=== PATIENT | female | born 1970 | race Caucasian/White ===

== ENCOUNTER → 2016-12-04 | Outpatient (REF) | payer BC ==
[2016-12-04 16:56] LABS: ALBUMIN/GLOBULIN RATIO 1.25 (1.00-1.93); ALKALINE PHOSPHATASE 86 U/L (45-117); ALT/SGPT 19 U/L (12-78); ANION GAP 7 MEQ/L (8-16); AST/SGOT 15 U/L (15-37); BILIRUBIN,TOTAL 0.4 MG/DL (0.2-1.0); BLOOD UREA NITROGEN 10 MG/DL (7-18); CALCIUM LEVEL 8.3 MG/DL (8.5-10.1); CARBON DIOXIDE LEVEL 28 MEQ/L (21-32); CHLORIDE LEVEL 107 MEQ/L (98-107); CREATININE FOR GFR 0.84 MG/DL (0.55-1.02); GLOMERULAR FILTRATION RATE > 60.0 (>58); GLUCOSE, FASTING 82 MG/DL (70-105); POTASSIUM SERUM 3.9 MEQ/L (3.5-5.1); SODIUM LEVEL 142 MEQ/L (136-145); TOTAL PROTEIN 7.2 GM/DL (6.4-8.2)
[2016-12-04 18:22] LABS: BASO % 0.8 % (0.0-1.0); EOS # 0.5 K/mm3 (0.0-0.50); EOS % 6.8 % (0.0-3.0); LARGE UNSTAINED CELL # 0.1 K/mm3 (0.0-0.4); LYMPH # 2.4 K/mm3 (1.5-4.5); LYMPH % 34.7 % (24.0-44.0); MEAN CORPUSCULAR HEMOGLOBIN 28.6 pg (27.0-33.0); MEAN CORPUSCULAR VOLUME 86.8 fl (80.0-96.0); MONO # 0.3 K/mm3 (0.0-0.8); MONO % 4.9 % (0.0-5.0); NEUTROPHILS # 3.5 K/mm3 (1.8-7.7); NEUTROPHILS % 51.8 % (36.0-66.0); PLATELET COUNT, AUTOMATED 267 k/mm3 (150-450); RED CELL DISTRIBUTION WIDTH 14.1 % (11.5-14.5); WHITE BLOOD COUNT 6.8 K/mm3 (4.0-10.0)
[2016-12-05 10:22] LABS: VITAMIN B12 LEVEL 295 PG/ML (247-911)
[2016-12-05 10:23] LABS: FOLATE 15.7 NG/ML (>5.4)
== END ==
LOC: M SFHCPLAZ 14:46
PROVIDERS: ATTEND Nurse Practitioner Family
DX: D64.9 Anemia, unspecified (principal); E55.9 Vitamin D deficiency, unspecified; F41.8 Other specified anxiety disorders

== ENCOUNTER → 2020-08-17 | Outpatient (REF) | payer BC ==
[2020-08-17 11:42] LABS: BASO # 0.1 10^3/uL (0.0-0.2); BASO % 0.9 % (0.0-1.0); EOS # 0.6 10^3/uL (0.0-0.5); EOS % 8.8 % (0.0-3.0); HEMATOCRIT 38.2 % (36.0-47.0); HEMOGLOBIN 12.3 g/dl (12.0-15.5); LYMPH # 2.6 10^3/uL (1.5-5.0); LYMPH % 40.7 % (24.0-44.0); MEAN CORPUSCULAR HEMOGLOBIN 28.6 pg (27.0-33.0); MEAN CORPUSCULAR HGB CONC 32.2 g/dl (32.0-36.5); MEAN CORPUSCULAR VOLUME 88.8 fl (80.0-96.0); MONO # 0.5 10^3/uL (0.0-0.8); MONO % 7.2 % (0.0-5.0); NEUTROPHILS # 2.7 10^3/uL (1.5-8.5); NEUTROPHILS % 42.2 % (36.0-66.0); PLATELET COUNT, AUTOMATED 222 10^3/uL (150-450); WHITE BLOOD COUNT 6.4 10^3/uL (4.0-10.0)
[2020-08-17 12:02] LABS: ALT/SGPT 18 U/L (12-78); BILIRUBIN,TOTAL 0.3 MG/DL (0.2-1.0); BLOOD UREA NITROGEN 8 MG/DL (7-18); CALCIUM LEVEL 8.7 MG/DL (8.5-10.1); CARBON DIOXIDE LEVEL 26 MEQ/L (21-32); CHLORIDE LEVEL 109 MEQ/L (98-107); CHOLESTEROL LEVEL 165 MG/DL (<200); CREATININE FOR GFR 0.96 MG/DL (0.55-1.30); FREE T4 0.76 NG/DL (0.76-1.46); GLOMERULAR FILTRATION RATE > 60.0 (>58); GLUCOSE, FASTING 93 MG/DL (70-100); HDL CHOLESTEROL 55 MG/DL (>40); LDL CHOLESTEROL 98 MG/DL (<100); NON-HDL-C 110 MG/DL; POTASSIUM SERUM 4.4 MEQ/L (3.5-5.1); SODIUM LEVEL 142 MEQ/L (136-145); TOTAL 25(OH) VITAMIN D 14.1 NG/ML (30.0-100.0); TOTAL PROTEIN 7.4 GM/DL (6.4-8.2); TRIGLYCERIDES LEVEL 59 MG/DL (<150)
== END ==
LOC: M SFHCCLAY 08:40
PROVIDERS: ATTEND Nurse Practitioner Family
DX: E55.9 Vitamin D deficiency, unspecified (principal); F41.8 Other specified anxiety disorders; D64.9 Anemia, unspecified; Z13.220 Encounter for screening for lipoid disorders

== ENCOUNTER → 2020-10-27 | Outpatient (CLI) | payer BC ==
[~2020-10-27] MED LIST: SERT-141 PO; THERTAB52 PO; VITA50005 PO
== END ==
LOC: M LABSMTC 10:40
PROVIDERS: ATTEND Anesthesiology
DX: Z01.812 Encounter for preprocedural laboratory examination (principal); Z20.822 Contact with and (suspected) exposure to COVID-19

== ENCOUNTER 2020-11-01 11:43 | Day surgery (SDC) | payer BC ==
[~2020-11-01] VITALS: Ht 165.1 cm; Wt 73.0 kg
[~2020-11-01 11:43] MED LIST changes: +NS 1,000 ML IV ONE
--- OUTSIDE RECORDS SUMMARY | 2020-11-01 11:47 | CCD ---
Author Author [facility] ems Organization [facility] ems Address Unknown Phone Unavailable Care Team Providers Care Product Lister Name Role Phone Nae Coulter Unavailable PROBLEMS Type Condition ICD9-CM Code [id number] Code Onset Dates Condition S tatus SNOMED Code Notes Problem Generalized anxiety disorder F41.1 Active 218 09439 Problem Major depressive disorder, recurrent episode, in partial remission F33.41 Active 04998982 Problem Vitamin D deficiency E55.9 Active 12469781 Problem Anxiety F41.9 Active 08792754 Problem Genital herpes A60.00 Active 02329564 Problem Pharyngoesophageal dysphagia R13.14 Active 407 67915 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 20071404 Problem Vitamin D deficiency, unspecified E55.9 Active 37600805 Problem Depression with anxiety F41.8 Active 00894292 6 Problem Severe episode of recurrent major depressive disorder, without psychotic features F33.2 Active 55359958 ALLERGIES No Known Allergies ENCOUNTERS from 1972 to 2020-09-05 Encounter Location Date Provider Diagnosis [address] [address] Aug Nae Nickconrado Pharyngoesophageal dysphagia R13.14 ; Vi tamin D deficiency E55.9 ; Depression with anxiety F41.8 ; Anemia, unspecified type D64.9 ; Screening for lipoid disorders Z13.220 and Encounter for immunization Z23 IMMUNIZATIONS Vaccine Route Administration Date Status Influenza (18 yrs & older) Flublok IM Intramuscular Jul 31, 2020 Administered TDAP 0.5mL (Boostrix) IM Intramuscular Nov 05, 2010 Administe red Influenza (6mo & up) Fluzone Unknown December 04, 2016 Oth ers Influenza (6mo & up) Fluzone IM Intramuscular Jul 16, 2012 Ad ministered Influenza (6mo & up) Fluzone IM Intramuscular Sep 03, 2011 Ad ministered Influenza (6mo & up) Fluzone IM Intramuscular Nov 05, 2010 Ad ministered SOCIAL HISTORY Tobacco Use: Social History Observation Description Date Details (start date - stop date) Never Smoker Sex Assigned At : Social History Observation Description Sex Assigned At Unknown Audit Question Answer Notes Total Score: 2 Interpretation: Alcohol Education Sexual Hx: Question Answer Notes Had sex in the last 12 months (vaginal, oral, or anal)? Yes LMP: 07/14/2018 Have you ever had an STD? Yes with Men only Use protection? No Drug and Alcohol Question Answer Notes Total Score: 0 Interpretation: No problems reported Alcohol Screening: Question Answer Notes Did you have a drink containing alcohol in the past year? Ye s Points 3 Interpretation Positive How often did you have six or more drinks on one occas ion in the past year? Never (0 points) How many drinks did you have on a typica l day when you were drinking in the past year? 3 or 4 (1 point) How often did you have a drink containing alcohol in t he past year? Two to four times a month (2 points) BMI Care Goal Follow-Up Question Answer Notes Above Normal BMI Follow-Up Lifestyle education regarding t Tobacco Use: Question Answer Notes Are you a: never smoker 08/29/2020 REASON FOR REFERRAL No Information VITAL SIGNS Weight 176 lbs Aug, Height 65 in Aug, BMI 29.28 kg/m2 Aug, Heart Rate 79 /min Aug, Respiratory Rate 18 /min Aug, Temperature 98 degrees Fahrenheit Aug, Oximetry 98RA Aug, Blood pressure systolic 112 mm Hg Aug, Blood pressure diastolic 70 mm Hg Aug, MEDICATIONS Medication SIG (Take, Route, Frequency, Duration) Notes Start Da te End Date Status Sertraline HCl 50 MG 1 tablet Orally Once a day for 90 Active Ibuprofen 200 MG 1 tablet as needed Orally every 6 hrs Active Clonazepam 0.5 MG 1 tablet at bedtime Orally PRN MDD 2 for 5 days Active Ergocalciferol 1.25 MG (73185 UT) 1 capsule Orally weekly for 90 day(s) Aug, Active Iron 325 (65 Fe) MG 1 tablet Orally Once a day for 30 day(s) Not-Taking PROCEDURES No Information RESULTS No Results REASON FOR VISIT 4 week follow up MEDICAL (GENERAL) HISTORY Type Description Date Medical History anxiety Medical History depression Medical History Erythropoietic Protoporphyria Surgical History 2009 Surgical History lap christiano-[place] 03/19 Hospitalization History childbirth Hospitalization History surgery Goals Section No Information Health Concerns No Information MEDICAL EQUIPMENT No Information MENTAL STATUS No Information FUNCTIONAL STATUS No Information ASSESSMENTS Encounter Date Diagnosis Assessment Notes Treatment Notes Treatm ent Clinical Notes Aug, Pharyngoesophageal dysphagia (ICD-10 - R13.14) Aug, Vitamin D deficiency (ICD-10 - E55.9) Aug, Depression with anxiety (ICD-10 - F41.8) Aug, Anemia, unspecified type (ICD-10 - D64.9) Aug, Screening for lipoid disorders (ICD-10 - Z13.220 ) Aug, Encounter for immunization (ICD-10 - Z23) Patient Educated with: FLU Vaccine, Inactivated [id number] (FLU Vaccine, Inactivated [id number]) PLAN OF TREATMENT Medication Medication Name Sig Start Date Stop Date Sertraline HCl 50 MG 1 tablet Orally Once a day for 90 Ergocalciferol 1.25 MG (06439 UT) 1 capsule Orally weekly fo r 90 day(s) Aug, Clonazepam 0.5 MG 1 tablet at bedtime Orally PRN MDD 2 for 5 day s Treatment Notes Assessment Notes Clinical Notes Encounter for immunization Patient Educated with: FLU Vaccine, Inactivated [id number] (FLU Vaccine, Inactivated [id number]) Next Appt Details 3 Months Reason: Provider Name:Nae Coulter, 11-30 08:30:00 AM, [facility] [place], [address], Insurance Providers Payer Name Payer Address Payer Phone Insured Name Patient Relati onship to Insured Coverage Start Date Coverage End Date [place] P[place] [phone] [facility] [employer] [place] [facility] [place] [id number] DIAZ MURPHY
--- OUTSIDE RECORDS SUMMARY | 2020-11-01 11:47 | CCD ---
Author Author [facility] em[facility] Organization [facility] Address Unknown Phone Unavailable Care Team Providers Care Lacrosse Player Name Role Phone Nickconrado Nae Unavailable PROBLEMS Type Condition ICD9-CM Code [id number] Code Onset Dates Condition S tatus SNOMED Code Notes Problem Generalized anxiety disorder F41.1 Active 218 92054 Problem Major depressive disorder, recurrent episode, in partial remission F33.41 Active 68233342 Problem Vitamin D deficiency E55.9 Active 45370930 Problem Anxiety F41.9 Active 16690611 Problem Genital herpes A60.00 Active 04804624 Problem Pharyngoesophageal dysphagia R13.14 Active 407 06352 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 83926902 Problem Vitamin D deficiency, unspecified E55.9 Active 98109009 Problem Depression with anxiety F41.8 Active 47924117 6 Problem Severe episode of recurrent major depressive disorder, without psychotic features F33.2 Active 99912135 ALLERGIES No Known Allergies ENCOUNTERS from 1972 to 2020-09-14 Encounter Location Date Provider Diagnosis [address] [address] Sep Nae Coulter IMMUNIZATIONS Vaccine Route Administration Date Status Influenza [...] REASON FOR REFERRAL No Information VITAL SIGNS No information MEDICATIONS Medication SIG (Take, Route, Frequency, Duration) Notes Start Da te End Date Status Sertraline HCl 50 MG 1 tablet Orally Once a day for 90 Active Ibuprofen 200 MG 1 tablet as needed Orally every 6 hrs Active Clonazepam 0.5 MG 1 tablet at bedtime Orally PRN MDD 2 for 5 days Active Ergocalciferol 1.25 MG (87232 UT) 1 capsule Orally weekly for 90 day(s) Aug, Active Iron 325 (65 Fe) MG 1 tablet Orally Once a day for 30 day(s) Not-Taking PROCEDURES No Information RESULTS No Results REASON FOR VISIT msg/call back MEDICAL (GENERAL) HISTORY Type Description Date Medical History anxiety Medical History depression Medical History Erythropoietic Protoporphyria Surgical History 2009 Surgical History lap christiano-[place] 03/19 Hospitalization History childbirth Hospitalization History surgery Goals Section No Information Health Concerns No Information MEDICAL EQUIPMENT No Information MENTAL STATUS No Information FUNCTIONAL STATUS No Information ASSESSMENTS No Information PLAN OF TREATMENT Medication Medication Name Sig Start Date Stop Date Sertraline HCl 50 MG 1 tablet Orally Once a day for 90 Ergocalciferol 1.25 MG (18622 UT) 1 capsule Orally weekly fo r 90 day(s) Aug, Clonazepam 0.5 MG 1 tablet at bedtime Orally PRN MDD 2 for 5 day s Next Appt Details Provider Name:Nae Romeroconrado, 11-30 08:30:00 AM, [address] [place], [address], Insurance Providers Payer Name Payer Address Payer Phone Insured Name Patient Relati onship to Insured Coverage Start Date Coverage End Date [place] [facility] [place] [facility] [phone] [facility] [place] [address] DIAZ MURPHY
--- OUTSIDE RECORDS SUMMARY | 2020-11-01 11:47 | CCD | Continuity of Care Document ---
Author Author Susan GREEN M.D Organization Unknown Address [address] [place] [address] Phone [phone] Care Team Providers Care Lining Setter Name Role Phone Nae Coulter [facility] [phone] Problems Active Problems Provider Date Dysphagia Mitul Green M.D. Onset: 10/24/19 21 Social History Type Date Description Comments Sex Unknown ETOH Use Occasionally Tobacco Use Start: Unknown Patient has never smoked Allergies, Adverse Reactions, Alerts Description No Known Drug Allergies Medications Active Medications SIG Qnty Indications Ordering Provide r Date Omeprazole 40mg Capsules DR 1 cap by mouth every morning 90caps Mitul Green M.D. 021 Sertraline HCL 50mg Tablets Nae Coulter FNP Vitamin D (Ergocalciferol) 1.25mg (60540 Ut) Capsules Take One Capsule By Mouth Once A Week Unk nown Multiple Vitamin Tablets Unknown Immunizations Description No Information Available Vital Signs Date Vital Result Comment 10/24/2020 2:27pm Height 65 inches 5'5" Weight 161.00 lb BP Systolic 122 mmHg BP Diastolic 88 mmHg Heart Rate 75 /min BMI (Body Mass Index) 26.8 kg/m2 Weight 73.030 kg Body Temperature 97.4 F Results Description No Information Available Procedures Description No Information Available Medical Devices Description No Information Available Encounters Description No Information Available Assessments Date Code Description Provider 10/24/2020 R13.10 Dysphagia, unspecified Mitul Green M.D. Plan of Treatment Future Appointment(s):* 11/01/2020 2:00 pm - Mitul Green M.D. at Main Office 10/24/2020 - Mitul Green M.D.* R13.10 Dysphagia, unspecified* Comments: * 50 yo wf who presents for a h/o dysphagia for 1 yr. Barium swallow was negative. No c/o abdominal pain, weight loss, change in bowel habits, or rectal bleeding. No family h/o colon cancer. No h/o chest pain, or sob. Plan:1. Egd + Balloon Dilatation.2. Informed consent. Functional Status Description No Information Available Mental Status Description No Information Available Referrals Description No Information Available
--- OUTSIDE RECORDS SUMMARY | 2020-11-01 11:47 | CCD ---
Author Author [facility]st ems Organization [facility] ems Address Unknown Phone Unavailable Care Team Providers Care Cancer Spec Name Role Phone Nae Coulter Unavailable PROBLEMS Type Condition ICD9-CM Code [id number] Code Onset Dates Condition S tatus SNOMED Code Notes Problem Generalized anxiety disorder F41.1 Active 218 46177 Problem Major depressive disorder, recurrent episode, in partial remission F33.41 Active 46384553 Problem Vitamin D deficiency E55.9 Active 40960272 Problem Anxiety F41.9 Active 59967805 Problem Genital herpes A60.00 Active 12121827 Problem Pharyngoesophageal dysphagia R13.14 Active 407 40641 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 No Alcohol Screening: Question Answer Notes Did you [...] Answer Notes Are you a: never smoker REASON FOR REFERRAL No Information VITAL SIGNS Weight 173 lbs Jul, Height 65 in Jul, BMI 28.79 kg/m2 Jul, Heart Rate 79 /min Jul, Respiratory Rate 20 /min Jul, Temperature 98.3 degrees Fahrenheit Jul, Oximetry 99 Jul, Blood pressure systolic 128 mm Hg Jul, Blood pressure diastolic 82 mm Hg Jul, MEDICATIONS Medication SIG (Take, Route, Frequency, Duration) Start Date En d Date Status Sertraline HCl 50 MG 1 tablet Orally Once a day for 90 Active Iron 325 (65 Fe) MG 1 tablet Orally Once a day for 30 day(s) Active Clonazepam 0.5 MG 1 tablet at bedtime Orally PRN MDD 2 for 5 days Active Ibuprofen 200 MG 1 tablet as needed Orally every 6 hrs Active PROCEDURES Procedure Date Ordered Result Body Site Immunization: Flublok Quadrivalent (18 years & older) 0.5mL IM (Influenza) 2020-07-31 N/A RESULTS No Results REASON FOR VISIT med check MEDICAL (GENERAL) HISTORY Type Description Date Medical History anxiety Medical History depression Medical History Erythropoietic Protoporphyria Surgical History 2009 Surgical History lap christiano-[place] 03/19 Hospitalization History childbirth Hospitalization History surgery Goals Section No Information Health Concerns No Information MEDICAL EQUIPMENT No Information MENTAL STATUS No Information FUNCTIONAL STATUS No Information ASSESSMENTS Encounter Date Diagnosis Notes Jul, Anemia, unspecified type (ICD-10 - D64.9 ) Jul, Depression with anxiety (ICD-10 - F41.8) Jul, Encounter for immunization (ICD-10 - Z23 ) Jul, Screening for lipoid disorders (ICD-10 - Z13.220) Jul, Vitamin D deficiency (ICD-10 - E55.9) Jul, Pharyngoesophageal dysphagia (ICD-10 - R 13.14) PLAN OF TREATMENT Medication Medication Name Sig Start Date Stop Date Sertraline HCl 50 MG 1 tablet Orally Once a day for 90 Clonazepam 0.5 MG 1 tablet at bedtime Orally PRN MDD 2 for 5 day s Treatment Notes Assessment Notes Clinical Notes Encounter for immunization Patient Educated with: FLU Vaccine, Inactivated [id number] (FLU Vaccine, Inactivated [id number]) Treatment Notes Test Name Order Date [facility] Esophagram (Barium Swallow) 2020-08-07 Future Test Test Name Order Date VITAMIN D 25-HYDROXY [id number] Comprehensive Metabolic Profile (CMP) [id number] LIPID PANEL (CARDIAC RISK) [id number] CBC with Differential [id number] FREE T4 & TSH PANEL [id number] Next Appt Details 4 Weeks Reason: Provider Name:Nae Coulter, 2019-10 08:30:00 AM, [address] [place], [address], Insurance Providers Payer Name Payer Address Payer Phone Insured Name Patient Relati onship to Insured Coverage Start Date Coverage End Date [employer] PPO [phone] [facility] [place] [address] DIAZ MURPHY
--- OUTSIDE RECORDS SUMMARY | 2020-11-01 11:47 | CCD | Continuity of Care Document ---
Author Author Susan GREEN M.D Organization Unknown Address [address] [place] [address] Phone [phone] Care Team Providers Care Manager Occupational Name Role Phone Nae Coulter [facility] [employer] [phone] Problems Active Problems Provider Date Dysphagia Mitul [...] Nae Coulter FNP Vitamin D (Ergocalciferol) 1.25mg (64515 Ut) Capsules Take One Capsule By Mouth [...] Medical Devices Description No Information Available Encounters Type Date Location Provider Dx Diagnosis Office Visit 10/24/2020 2:00p Main Office Mitul Green M.D. R 13.10 Dysphagia, unspecified Assessments Date Code Description Provider 10/24/2020 R13.10 Dysphagia, unspecified Mitul S. Jalyn,M.D. Plan of Treatment Future Appointment(s):* 10/30/2020 7:45 am - Leroy at Main Office * 11/01/2020 2:00 pm - Mitul Green M.D. [...]
--- OUTSIDE RECORDS SUMMARY | 2020-11-01 11:47 | CCD ---
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 Name Role Phone Noemi Gunderson MD Unavailable Unavailable Noemi Gunderson MD Unavailable Unavailable Noemi Gunderson MD Unavailable Unavailable Noemi uGnderson MD Unavailable Unavailable Noemi Gunderson MD Unavailable Unavailable Noemi Gunderson MD Unavailable Unavailable Noemi Gunderson MD Unavailable Unavailable Noemi Gunderson MD Unavailable Unavailable Noemi Gunderson MD Unavailable Unavailable Noemi Gunderson MD Unavailable Unavailable Noemi Gunderson MD Unavailable Unavailable Noemi Gunderson MD Unavailable Unavailable Noemi Gunderson MD Unavailable Unavailable Noemi Gunderson MD Unavailable Unavailable Noemi Gunderson MD Unavailable Unavailable Noemi Gunderson MD Unavailable Unavailable Noemi Gunderson MD Unavailable Unavailable Noemi Gunderson MD Unavailable Unavailable Noemi Gunderson MD Unavailable Unavailable Noemi Gunderson MD Unavailable Unavailable Noemi Gunderson MD Unavailable Unavailable Noemi Gunderson MD Unavailable Unavailable Noemi Gunderson MD Unavailable Unavailable Noemi Gunderson MD Unavailable Unavailable Noemi Gunderson MD Unavailable Unavailable Noemi Gunderson MD Unavailable Unavailable Noemi Gunderson MD Unavailable Unavailable Noemi Gunderson MD Unavailable Unavailable Noemi Gunderson MD Unavailable Unavailable Noemi Gunderson MD Unavailable Unavailable Noemi Gunderson MD Unavailable Unavailable Jalyn, Noemi Bauman MD Unavailable Unavailable Jalyn, Noemi Bauman MD Unavailable Unavailable Jalyn, S Mitul FERRARI Unavailable Unavailable Jalyn, S Mitul FERRARI Unavailable Unavailable Jalyn, S Mitul FERRARI Unavailable Unavailable Ajlyn, S Mitul FERRARI Unavailable Unavailable Jalyn, S Mitul FERRARI Unavailable Unavailable Jalyn, S Mitul FERRARI Unavailable Unavailable Jalyn, S Mitul FERRARI Unavailable Unavailable Jalyn, S Mitul FERRARI Unavailable Unavailable Jalyn, S Mitul FERRARI Unavailable Unavailable Jalyn, S Mitul FERRARI Unavailable Unavailable Jalyn, S Mitul FERRARI Unavailable Unavailable Jalyn, S Mitul FERRARI Unavailable Unavailable Jalyn, S Mitul FERRARI Unavailable Unavailable Jalyn, S Mitul FERRARI Unavailable Unavailable Jalyn, S Mitul FERRARI Unavailable Unavailable Alberry, D Nae WEB APPLICATIONS DEVELOPER Unavailable Unavailable Alberry, D Nae WEB APPLICATIONS DEVELOPER Unavailable Unavailable Alberry, D Nae WEB APPLICATIONS DEVELOPER Unavailable Unavailable Alberry, D Nae WEB APPLICATIONS DEVELOPER Unavailable Unavailable Alberry, D Nae WEB APPLICATIONS DEVELOPER Unavailable Unavailable Alberry, D Nae WEB APPLICATIONS DEVELOPER Unavailable Unavailable Alberry, D Nae WEB APPLICATIONS DEVELOPER Unavailable Unavailable Alberry, D Nae WEB APPLICATIONS DEVELOPER Unavailable Unavailable Alberry, D Nae WEB APPLICATIONS DEVELOPER Unavailable Unavailable Alberry, D Nae WEB APPLICATIONS DEVELOPER Unavailable Unavailable Alberry, D Nae WEB APPLICATIONS DEVELOPER Unavailable Unavailable Alberry, D Nae WEB APPLICATIONS DEVELOPER Unavailable Unavailable Alberry, D Nae WEB APPLICATIONS DEVELOPER Unavailable Unavailable Alberry, D Nae WEB APPLICATIONS DEVELOPER Unavailable Unavailable Alberry, D Nae WEB APPLICATIONS DEVELOPER Unavailable Unavailable Alberry, D Nae WEB APPLICATIONS DEVELOPER Unavailable Unavailable Alberry, D Nae WEB APPLICATIONS DEVELOPER Unavailable Unavailable Alberry, D Nae WEB APPLICATIONS DEVELOPER Unavailable Unavailable Alberry, D Nae WEB APPLICATIONS DEVELOPER Unavailable Unavailable Alberry, D Nae WEB APPLICATIONS DEVELOPER Unavailable Unavailable Alberry, D Nae WEB APPLICATIONS DEVELOPER Unavailable Unavailable Alberry, D Nae WEB APPLICATIONS DEVELOPER Unavailable Unavailable Alberry, D Nae WEB APPLICATIONS DEVELOPER Unavailable Unavailable Alberry, D Nae WEB APPLICATIONS DEVELOPER Unavailable Unavailable Alberry, D Nae WEB APPLICATIONS DEVELOPER Unavailable Unavailable Alberry, D Nae WEB APPLICATIONS DEVELOPER Unavailable Unavailable Alberry, D Nae WEB APPLICATIONS DEVELOPER Unavailable Unavailable Alberry, D Nae WEB APPLICATIONS DEVELOPER Unavailable Unavailable Alberry, D Nae WEB APPLICATIONS DEVELOPER Unavailable Unavailable Alberry, D Nae WEB APPLICATIONS DEVELOPER Unavailable Unavailable Alberry, D Nae WEB APPLICATIONS DEVELOPER Unavailable Unavailable Alberry, D Nae WEB APPLICATIONS DEVELOPER Unavailable Unavailable Alberry, D Nae WEB APPLICATIONS DEVELOPER Unavailable Unavailable Alberry, D Nae WEB APPLICATIONS DEVELOPER Unavailable Unavailable Alberry, D Nae WEB APPLICATIONS DEVELOPER Unavailable Unavailable Alberry, D Nae WEB APPLICATIONS DEVELOPER Unavailable Unavailable Alberry, D Nae WEB APPLICATIONS DEVELOPER Unavailable Unavailable Alberry, D Nae WEB APPLICATIONS DEVELOPER Unavailable Unavailable Alberry, D Nae WEB APPLICATIONS DEVELOPER Unavailable Unavailable Alberry, D Nae WEB APPLICATIONS DEVELOPER Unavailable Unavailable Alberry, D Nae WEB APPLICATIONS DEVELOPER Unavailable Unavailable Alberry, D Nae WEB APPLICATIONS DEVELOPER Unavailable Unavailable Alberry, D Nae WEB APPLICATIONS DEVELOPER Unavailable Unavailable Alberry, D Nae WEB APPLICATIONS DEVELOPER Unavailable Unavailable Alberry, D Nae WEB APPLICATIONS DEVELOPER Unavailable Unavailable Alberry, D Nae WEB APPLICATIONS DEVELOPER Unavailable Unavailable Alberry, D Nae WEB APPLICATIONS DEVELOPER Unavailable Unavailable Alberry, D Nae WEB APPLICATIONS DEVELOPER Unavailable Unavailable LEWIS, Crissy GARCIA MD Unavailable Unavailable LEWIS, Crissy GARCIA MD Unavailable Unavailable LEWIS, Crissy GARCIA MD Unavailable Unavailable LEWIS, Crissy GARCIA MD Unavailable Unavailable LEWIS, Crissy GARCIA MD Unavailable Unavailable LEWIS, Crissy GARCIA MD Unavailable Unavailable LEWIS, Crissy GARCIA MD Unavailable Unavailable LEWIS, Crissy GARCIA MD Unavailable Unavailable LEWIS, Crissy GARCIA MD Unavailable Unavailable LEWIS, Crissy GARCIA MD Unavailable Unavailable LEWIS, Crissy GARCIA MD Unavailable Unavailable LEWIS, Crissy GARCIA MD Unavailable Unavailable LEWIS, Crissy GARCIA MD Unavailable Unavailable LEWIS, Crissy GARCIA MD Unavailable Unavailable LEWIS, Crissy GARCIA MD Unavailable Unavailable LEWIS, Crissy GARCIA MD Unavailable Unavailable LEWIS, Crissy GARCIA MD Unavailable Unavailable LEWIS, Crissy GARCIA MD Unavailable Unavailable LEWIS, Crissy GARCIA MD Unavailable Unavailable LEWIS, Crissy GARCIA MD Unavailable Unavailable LEWIS, Crissy GARCIA MD Unavailable Unavailable LEWIS, Crissy GARCIA MD Unavailable Unavailable LEWIS, Crissy GARCIA MD Unavailable Unavailable LEWIS, Crissy GARCIA MD Unavailable Unavailable LEWIS, Crissy GARCIA MD Unavailable Unavailable LEWIS, Crissy GARCIA MD Unavailable Unavailable LEWIS, Crissy GARCIA MD Unavailable Unavailable LEWIS, Crissy GARCIA MD Unavailable Unavailable LEWIS, Crissy GARCIA MD Unavailable Unavailable LEWIS, Crissy GARCIA MD Unavailable Unavailable LEWIS, Crissy GARCIA MD Unavailable Unavailable LEWIS, Crissy GARCIA MD Unavailable Unavailable LEWIS, Crissy GARCIA MD Unavailable Unavailable LEWIS, Crissy GARCIA MD Unavailable Unavailable LEWIS, Crissy GARCIA MD Unavailable Unavailable LEWIS, Crissy GARCIA MD Unavailable Unavailable LEWIS, Crissy GARCIA MD Unavailable Unavailable LEWIS, Crissy GARCIA MD Unavailable Unavailable LEWIS, Crissy GARCIA MD Unavailable Unavailable LEWIS, Crissy GARCIA MD Unavailable Unavailable LEWIS, Crissy GARCIA MD Unavailable Unavailable Crissy LEWIS MD Unavailable Unavailable Re-disclosure Warning The records that you are about to access may contain information from federally-assisted alcohol or drug abuse programs. If such information is present, then the following federally mandated warning applies: This information has been disclosed to you from records protected by federal confidentiality rules (42 CFR part 2). The federal rules prohibit you from making any further disclosure of this information unless further disclosure is expressly permitted by the written consent of the person to whom it pertains or as otherwise permitted by 42 CFR part 2. A general authorization for the release of medical or other information is NOT sufficient for this purpose. The Federal rules restrict any use of the information to criminally investigate or prosecute any alcohol or drug abuse patient.The records that you are about to access may contain highly sensitive health information, the redisclosure of which is protected by Article 27-F of the [facility] Public Health law. If you continue you may have access to information: Regarding HIV / AIDS; Provided by facilities licensed or operated by the [facility] Office of Mental Health; or Provided by the [facility] Office for People With Developmental Disabilities. If such information is present, then the following [facility] mandated warning applies: This information has been disclosed to you from confidential records which are protected by state law. State law prohibits you from making any further disclosure of this information without the specific written consent of the person to whom it pertains, or as otherwise permitted by law. Any unauthorized further disclosure in violation of state law may result in a fine or mcc sentence or both. A general authorization for the release of medical or other information is NOT sufficient authorization for further disc losure. Family History Family Member Name Family Member Gender Family Member Status Date o f Status Description Data Source(s) Unknown Unknown Problem MEDENT ([facility]) Unknown Unknown Problem MEDENT ([facility]) Encounters Encounter Providers Location Date Indications Data Source(s ) Outpatient Attender: Mitul Gunderson MD Main Office 10/24/2020 01:00:00 PM EST MEDENT ([facility]) Unknown [address] [facility] [place] [address] 09/12/2020 12:00:00 AM EST eCW1 ([facility]) [place] 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 09:30:00 AM EDT MEDENT ([place] [facility]) Immunizations Vaccine Date Status Description Data Source(s) influenza, recombinant, quadrIvalent,injectable, prese rvative free 07/31/2020 04:08:00 PM EDT completed eCW1 ([facility]) influenza, recombinant, quadrIvalent,injectable, prese rvative free 07/31/2020 04:08:00 PM EDT completed eCW1 ([facility]) influenza, recombinant, quadrIvalent,injectable, prese rvative free 07/31/2020 04:08:00 PM EDT completed eCW1 ([facility]) Medications Medication Brand Name Start Date Product Form Dose Route Admi nistrative Instructions Pharmacy Instructions Status Indications Reaction Description Data Source(s) 40 mg 10/24/2020 12:00:00 AM EST capsule,delayed release (DR/EC) 90 TAKE ONE CAPSULE BY MOUTH EVERY MORNING TAKE ONE CAPSULE BY MOUTH EVERY MORNING SOLD: 10/24/2020 [facility] Omeprazole 40 MG Delayed Release Oral Capsule Omeprazole 10/24/2020 12:00:00 AM EST ORAL active MEDENT ([facility]) 0.5 mg 08/30/2020 12:00:00 AM EST tablet 10 TAKE ONE TABLET BY MOUTH AT BEDTIME NEEDED MAXIMUM DAILY DOSE = 2 TAKE ONE TABLET BY MOUTH AT BEDTIME NEEDED MAXIMUM DAILY DOSE = 2 SOLD: 09/03/2020 [facility] Ergocalciferol 70022 UNT Oral Capsule Ergocalciferol 1 .25 MG (03157 UT) Ergocalciferol 1.25 MG (35485 UT) 08/29/2020 12:00:00 AM EST 1.0 {c apsule} active Ergocalciferol 1.25 MG (5 0000 UT) eCW1 ([facility]) 1,250 mcg (50,000 unit) 08/29/2020 12:00:00 AM EST capsule 12 TAKE ONE CAPSULE BY MOUTH ONCE A WEEK TAKE ONE CAPSULE BY MOUTH ONCE A WEEK SOLD: 08/30/2020 [facility] Ergocalciferol 05706 UNT Oral Capsule Ergocalciferol 1 .25 MG (76629 UT) Ergocalciferol 1.25 MG (38988 UT) 08/29/2020 12:00:00 AM EST 1.0 {c apsule} active Ergocalciferol 1.25 MG (5 0000 UT) eCW1 ([facility]) 50 mg 07/31/2020 12:00:00 AM EDT tablet 90 TAKE ONE TABLET BY MOUTH EVERY DAY TAKE ONE TABLET BY MOUTH EVERY DAY SOLD: 08/02/2020 [facility] 50 mg 11/24/2019 12:00:00 AM EST tablet 90 TAKE ONE TABLET BY MOUTH EVERY DAY TAKE ONE TABLET BY MOUTH EVERY DAY SOLD: 12/05/2019 [facility] 50 mg 11/24/2019 12:00:00 AM EST tablet 90 TAKE ONE TABLET BY MOUTH EVERY DAY TAKE ONE TABLET BY MOUTH EVERY DAY SOLD: 04/28/2020 [facility] Insurance Providers Payer name Policy type / Coverage type Policy ID Covered democrat ID Covered democrat's relationship to rutledge Policy Rutledge Plan Information [place] 302/307 [id number] SP [id number] [place]/307 [id number] SP [id number] [place] [id number] S [id number] [id number] ANSI-Commercial [id number] [place] [id number] S [id number] [place] [id number] S VYA [id number] ANSI-Commercial [id number] ANSI-Commercial [id number] BS Of [place] Commercial [id number] Self [id number] [employer] BCBS B [id number] S [id number] [place] PPO 302/307 [id number] SP [id number] BCBS/Blue Card Commercial Self [id number] Problems, Conditions, and Diagnoses Code Display Name Description Problem Type Effective Dates Data Source(s) 70402004 Dysphagia Dysphagia Problem 10/24/2020 12:00:00 AM ES T MEDENT ([facility]) R13.14 [id number] Pharyngoesophageal dysphagia Problem 020 12:00:00 AM EDT eCW1 ([facility]) R13.14 Dysphagia, pharyngoesophageal phase DYSPHAGIA, P HARYNGOESOPHAGEAL PHASE Diagnosis 08/09/2020 03:39:00 PM [facility] Surgeries/Procedures Procedure Description Date Indications Data Source(s) Immunization: Flublok Quadrivalent (18 years & older) 0.5mL IM (Influenza) 07/31/2020 12:00:00 AM EDT eCW1 ([facility]) Results ID Date Data Source [id number] 10/27/2020 10:00:00 AM EST [facility] Name Value Range Interpretation Code Description Data Lauren rce(s) Supporting Document(s) SARS coronavirus 2 RNA Not Detected [facility] This lab was ordered by [facility] and reported by [facility]. ID Date Data Source [id number] 08/09/2020 04:03:00 PM [facility] DATE OF EXAMINATION: 08/09/2020 15:43 EST ESOPHRAGAM HISTORY: Dysphagia NUMBER OF IMAGES: 4 Preliminary percher view of the chest appears unremarkable. The esophagus displays normal peristaltic activity throughout. There is noevidence for any diverticula, inflammatory changes, filling defects, hiatalhernia, or gastroesophageal reflux. A normal mucosal pattern is notedthroughout. IMPRESSION: Unremarkable esophagram exam. Electronically signed in [id number] by: Ginette Larios M.D. 08/09/2020 15:57 EST Name Value Range Interpretation Code Description Data [facility](s) Supporting Document(s) ID Date Data Source [id number] 05/24/2020 12:00:00 PM EDT MEDENT ([facility]) Name Value Range Interpretation Code Description Data [facility](s) Supporting Document(s) TP Reflex HPV ASCUS Laboratory test result MEDENT ([facility] ARTISTIC ASSOCIATE) TP Reflex HPV ASCUS Laboratory test result MEDENT (Cyr[facility] Ramires ARTISTIC ASSOCIATE) SPECIMEN PART------ A. Cervical, Endocervical, ThinPrep Pap (Sexual Assault Response Coordinator) CYTOLOGY HX-------- Date of Last Menstrual Period: 02/2020 Other Information:Previous Normal Pap: 05/20/19 FINAL DIAGNOSIS---- INTERPRETATION: Negative for Intraepithelial Lesion or Malignancy. SPECIMEN ADEQUACY:Satisfactory for evaluation. Endocervical/transformation zone component present. Procedure Social History Code Duration Value Status Description Data Source(s ) Smoking 08/29/2020 12:00:00 AM EST Never Smoker completed Never S moker eCW1 ([facility]) Smoking 08/29/2020 12:00:00 AM EST Never Smoker completed Never S moker eCW1 ([facility]) Smoking 07/31/2020 12:00:00 AM EDT Never Smoker completed Never S moker eCW1 ([facility]) Smoking 05/24/2020 12:00:00 AM EDT Patient has never smoked co mpleted Patient has never smoked MEDENT ([facility]ISTIC [facility]OCI[facility]) Vital Signs ID Date Data Source UNK Name Value Range Interpretation Code Description Data Source(s) Body temperature 97.4 [degF] 97.4 [degF] MEDENT ([facility]) Body weight 73.030 kg 73.030 kg [facility]) Body mass index (BMI) [Ratio] 26.8 kg/m2 26.8 k g/m2 MEDENT ([facility]) Heart rate 75 /min 75 /min [facility] ([facility]) Diastolic blood pressure 88 mm[Hg] 88 mm[Hg] MEDENT ([facility]) Systolic blood pressure 122 mm[Hg] 122 mm[Hg] M EDENT ([facility]) Body weight 161.00 [lb_av] 161.00 [lb_av] MEDEN T ([facility]) Body height 65 [in_i] 65 [in_i] [facility] ([facility]) 5'5" Diastolic blood pressure 70 mm[Hg] 70 mm[Hg] eCW1 ([facility]) Systolic blood pressure 112 mm[Hg] 112 mm[Hg] e CW1 ([facility]) Body temperature 98 [degF] 98 [degF] eCW1 ([facility]) Respiratory rate 18 /min 18 /min eCW1 ([facility]) Heart rate 79 /min 79 /min eCW1 ([facility]) Body mass index (BMI) [Ratio] 29.28 kg/m2 29.28 kg/m2 W1 ([facility]) Body height 65 [in_i] 65 [in_i] eCW1 ([facility]) Body weight 176 [lb_av] 176 [lb_av] eCW1 ([facility]) Diastolic blood pressure 82 mm[Hg] 82 mm[Hg] eCW1 ([facility]) Systolic blood pressure 128 mm[Hg] 128 mm[Hg] e CW1 ([facility]) Body temperature 98.3 [degF] 98.3 [degF] eCW1 ( [facility]) Respiratory rate 20 /min 20 /min eCW1 ([facility]) Heart rate 79 /min 79 /min eCW1 ([facility]) Body mass index (BMI) [Ratio] 28.79 kg/m2 28.79 kg/m2 eCW1 ([facility]) Body height 65 [in_i] 65 [in_i] eCW1 ([facility]) Body weight 173 [lb_av] 173 [lb_av] eCW1 ([facility]) Body surface area 1.86 m2 1.86 m2 MED[facility] ([facility]) Body mass index (BMI) [Ratio] 28.8 kg/m2 28.8 k g/m2 MEDENT ([facility]) Body weight 173.00 [lb_av] 173.00 [lb_av] MEDEN T ([facility]IC [facility]OC[facility]) Body height 65 [in_i] 65 [in_i] MEDENT ([facility] ARTISTIC [facility]OCIATE) 5'5" Diastolic blood pressure 82 mm[Hg] 82 mm[Hg] MEDENT ([facility] ARTISTIC ASSOCIATE) Systolic blood pressure 122 mm[Hg] 122 mm[Hg] M EDENT ([facility] ARTISTIC ASSOCIATE) Patient Treatment Plan of Care Planned Activity Planned Date Details Description Data Source (s) Ergocalciferol [id number] UNT Oral Capsule 08/29/2020 12:00:00 AM EST eCW1 ([facility]) Ergocalciferol 55667 UNT Oral Capsule 08/29/2020 12:00:00 AM EST eCW1 ([facility])
[2020-11-01] MEDS ORDERED: fentaNYL 100 MCG/2 ML INJECTION (J3010) As Ordered ONE (13:14)
[2020-11-01] MEDS ORDERED: LIDOCAINE 2% 100MG/5ML SDV (FOR ANES.) As Ordered ONE (13:14)
[2020-11-01] MEDS ORDERED: propofoL 200 MG/20 ML VIAL As Ordered ONE (13:14)
--- NOTE | 2020-11-01 13:36 | ROOR ---
Patient Name: Susan Richardson Procedure Date: 11/01/2020 1:14 PM Date of : 1970 Age: 50 Room: [facility] Gender: Female Note Status: Finalized Procedure: Upper Endoscopy + Biopsies + Balloon Dilatation Indications: Dysphagia Providers: Mitul Gunderson MD Referring MD: Nae Coulter NP Requesting Provider: Medicines: Monitored Anesthesia Care Complications: No immediate complications. Procedure: Pre-Anesthesia Assessment: - The heart rate, respiratory rate, oxygen saturations, blood pressure, adequacy of pulmonary ventilation, and response to care were monitored throughout the procedure. The Endoscope was introduced through the mouth, and advanced to the second part of duodenum. The upper GI endoscopy was accomplished without difficulty. The patient tolerated the procedure well. Findings: The Z-line was regular and was found 40 cm from the incisors. A TTS dilator was passed through the scope. Dilation with a 12-13.5-15 mm balloon and a 15-16.5-18 mm balloon dilator was performed to 15 mm and 18 mm. The dilation site was examined and showed mild mucosal disruption. Mucosal changes including ringed esophagus were found in the distal esophagus. Biopsies were taken with a cold forceps for histology. No other significant abnormalities were identified in a careful examination of the stomach. The exam of the duodenum was otherwise normal. Impression: - Z-line regular, 40 cm from the incisors. Dilated. - Esophageal mucosal changes suggestive of eosinophilic esophagitis. Biopsied. - The examination was otherwise normal. Recommendation: - Await pathology results. - Discharge patient to home. - Follow an antireflux regimen. - Continue present medications. - Await pathology results. - Telephone GI clinic for pathology results in 1 week. - Return to referring physician. - The findings and recommendations were discussed with the patient. Procedure Code(s): --- Professional --- 21740, Esophagogastroduodenoscopy, flexible, transoral; with transendoscopic balloon dilation of esophagus (less than 30 mm diameter) Diagnosis Code(s): --- Professional --- K22.8, Other specified diseases of esophagus R13.10, Dysphagia, unspecified CPT copyright 2019 [employer]. All rights reserved. The codes documented in this report are preliminary and upon school traffic guard review may be revised to meet current compliance requirements. Mitul Gunderson MD Mitul Gunderson MD 11/01/2020 1:35:53 PM Electronically signed by Mitul Gunderson MD Number of Addenda: 0 Note Initiated On: 11/01/2020 1:14 PM Estimated Blood Loss: Estimated blood loss: none.
[2020-11-01 13:55] VITALS: BP 117/78
== END 2020-11-01 14:27 | disposition home or self-care (01) ==
LOC: M OPP 11:43
PROVIDERS: ATTEND Internal Medicine Gastroenterology
DX: R13.10 Dysphagia, unspecified (principal); D13.0 Benign neoplasm of esophagus; K22.8 Other specified diseases of esophagus; R12 Heartburn; F41.9 Anxiety disorder, unspecified; Z79.899 Other long term (current) drug therapy
CPT/HCPCS: 43239; 43249; 88305; J3010

== ENCOUNTER → 2021-11-12 | Outpatient (REF) | payer BC ==
[~2021-11-12] MED LIST changes: +ERGO500029 PO; -NS 1,000 ML IV ONE; -VITA50005 PO
[2021-11-12 16:36] LABS: BASO # 0.1 10^3/uL (0.0-0.2); EOS # 0.5 10^3/uL (0.0-0.5); EOS % 7.5 % (0.0-3.0); HEMATOCRIT 38.1 % (36.0-47.0); HEMOGLOBIN 12.5 g/dl (12.0-15.5); LYMPH # 2.7 10^3/uL (1.5-5.0); LYMPH % 38.3 % (24.0-44.0); MEAN CORPUSCULAR HEMOGLOBIN 28.7 pg (27.0-33.0); MEAN CORPUSCULAR HGB CONC 32.8 g/dl (32.0-36.5); MEAN CORPUSCULAR VOLUME 87.4 fl (80.0-96.0); MONO # 0.5 10^3/uL (0.0-0.8); MONO % 7.4 % (2.0-8.0); NEUTROPHILS # 3.2 10^3/uL (1.5-8.5); NEUTROPHILS % 45.5 % (36.0-66.0); PLATELET COUNT, AUTOMATED 268 10^3/uL (150-450); RED BLOOD COUNT 4.36 10^6/uL (4.00-5.40); WHITE BLOOD COUNT 7.1 10^3/uL (4.0-10.0)
[2021-11-12 17:19] LABS: ALBUMIN 4.1 GM/DL (3.2-5.2); ALT/SGPT 20 U/L (12-78); BILIRUBIN,TOTAL 0.4 MG/DL (0.2-1.0); BLOOD UREA NITROGEN 13 MG/DL (7-18); CALCIUM LEVEL 9.3 MG/DL (8.5-10.1); CARBON DIOXIDE LEVEL 27 MEQ/L (21-32); CHLORIDE LEVEL 106 MEQ/L (98-107); CHOLESTEROL LEVEL 159 MG/DL (<200); CHOLESTEROL RISK RATIO 2.741 (<5); CREATININE FOR GFR 0.99 MG/DL (0.55-1.30); FREE T4 0.74 NG/DL (0.76-1.46); GLOMERULAR FILTRATION RATE > 60.0 (>58); GLUCOSE, FASTING 78 MG/DL (70-100); HDL CHOLESTEROL 58 MG/DL (>40); LDL CHOLESTEROL 82 MG/DL (<100); NON-HDL-C 101 MG/DL; POTASSIUM SERUM 4.3 MEQ/L (3.5-5.1); SODIUM LEVEL 139 MEQ/L (136-145); TOTAL PROTEIN 7.5 GM/DL (6.4-8.2); TRIGLYCERIDES LEVEL 96 MG/DL (<150)
[2021-11-12 17:20] LABS: TOTAL 25(OH) VITAMIN D 50.6 NG/ML (30.0-100.0)
== END ==
LOC: M SFHCCLAY 11:18
PROVIDERS: ATTEND Nurse Practitioner Family
DX: E55.9 Vitamin D deficiency, unspecified (principal); F41.8 Other specified anxiety disorders; D64.9 Anemia, unspecified; Z13.220 Encounter for screening for lipoid disorders

== ENCOUNTER → 2022-11-13 | Outpatient (REF) | payer OTHER ==
[2022-11-13 12:12] LABS: BASO # 0.1 10^3/uL (0.0-0.2); EOS # 0.5 10^3/uL (0.0-0.5); EOS % 7.1 % (0.0-3.0); HEMATOCRIT 40.6 % (36.0-47.0); HEMOGLOBIN 13.1 g/dl (12.0-15.5); LYMPH # 2.8 10^3/uL (1.5-5.0); LYMPH % 39.8 % (24.0-44.0); MEAN CORPUSCULAR HEMOGLOBIN 28.9 pg (27.0-33.0); MEAN CORPUSCULAR HGB CONC 32.3 g/dl (32.0-36.5); MEAN CORPUSCULAR VOLUME 89.4 fl (80.0-96.0); MONO # 0.6 10^3/uL (0.0-0.8); NEUTROPHILS # 3.1 10^3/uL (1.5-8.5); NEUTROPHILS % 43.8 % (36.0-66.0); PLATELET COUNT, AUTOMATED 261 10^3/uL (150-450); RED BLOOD COUNT 4.54 10^6/uL (4.00-5.40)
[2022-11-13 12:16] LABS: ALBUMIN 4.3 G/DL (3.2-5.2); ALKALINE PHOSPHATASE 112 U/L (46-116); ALT/SGPT 15 U/L (7.0-40); AST/SGOT 21 U/L (<34); BILIRUBIN,TOTAL 0.4 MG/DL (0.3-1.2); BLOOD UREA NITROGEN 12 MG/DL (9-23); CALCIUM LEVEL 9.6 MG/DL (8.5-10.1); CARBON DIOXIDE LEVEL 28 MMOL/L (20-31); CHLORIDE LEVEL 105 MMOL/L (98-107); CHOLESTEROL LEVEL 180 MG/DL (<200); CHOLESTEROL RISK RATIO 3.06 (<5); CREATININE FOR GFR 0.98 MG/DL (0.55-1.30); GLOMERULAR FILTRATION RATE > 60.0 (>51); GLUCOSE, FASTING 94 MG/DL (60-100); HDL CHOLESTEROL 58.8 MG/DL (>40); LDL CHOLESTEROL 107.2 MG/DL (<100); NON-HDL-C 121 MG/DL; POTASSIUM SERUM 4.3 MMOL/L (3.5-5.1); SODIUM LEVEL 139 MMOL/L (136-145); TOTAL PROTEIN 7.7 G/DL (5.7-8.2); TRIGLYCERIDES LEVEL 70 MG/DL (<150)
[2022-11-13 12:17] LABS: FREE T4 0.86 NG/DL (0.89-1.76); THYROID STIMULATING HORMONE 2.587 uIU/ML (0.55-4.78); TOTAL 25(OH) VITAMIN D 22.1 NG/ML (20.0-100.0)
== END ==
LOC: M SFHCCLAY 08:26
PROVIDERS: ATTEND Nurse Practitioner Family
DX: Z00.00 Encounter for general adult medical examination without abnormal findings (principal); Z13.220 Encounter for screening for lipoid disorders; E55.9 Vitamin D deficiency, unspecified; F41.8 Other specified anxiety disorders; D64.9 Anemia, unspecified

== ENCOUNTER → 2022-12-11 | Outpatient (CLI) | payer BC, OTHER ==
[~2022-12-11] MED LIST changes: +OMEP40CA4 PO
== END ==
LOC: M LABSMTC 08:48
PROVIDERS: ATTEND Anesthesiology
DX: Z01.818 Encounter for other preprocedural examination (principal)

== ENCOUNTER 2022-12-16 07:08 | Day surgery (SDC) | payer OTHER ==
[~2022-12-16] VITALS: Ht 165.1 cm; Wt 74.8 kg
[~2022-12-16 07:08] MED LIST changes: +NS 1,000 ML IV ONE
[2022-12-16] MEDS ORDERED: propofoL 200 MG/20 ML VIAL As Ordered ONE (07:34)
[2022-12-16] MEDS ORDERED: LIDOCAINE 2% 100MG/5ML SDV (FOR ANES.) As Ordered ONE (07:34)
[2022-12-16 09:17] VITALS: BP 110/69
== END 2022-12-16 09:30 | disposition home or self-care (01) ==
LOC: M OPP 07:08
PROVIDERS: ATTEND Internal Medicine Gastroenterology
DX: Z12.11 Encounter for screening for malignant neoplasm of colon (principal); D12.0 Benign neoplasm of cecum; K64.0 First degree hemorrhoids; K57.30 Diverticulosis of large intestine without perforation or abscess without bleeding; F41.9 Anxiety disorder, unspecified; Z79.899 Other long term (current) drug therapy

== ENCOUNTER → 2023-11-13 | Outpatient (REF) | payer OTHER ==
[~2023-11-13] MED LIST changes: -NS 1,000 ML IV ONE
== END ==
LOC: M SFHCWAGY 17:52
PROVIDERS: ATTEND Nurse Practitioner Family
DX: Z12.4 Encounter for screening for malignant neoplasm of cervix (principal)
CPT/HCPCS: 87624; G0123

== ENCOUNTER → 2023-11-17 | Outpatient (REF) | payer OTHER ==
[2023-11-17 12:01] LABS: BASO # 0.1 10^3/uL (0.0-0.2); BASO % 1.1 % (0.0-1.0); EOS # 0.3 10^3/uL (0.0-0.5); HEMATOCRIT 35.6 % (36.0-47.0); HEMOGLOBIN 11.8 g/dl (12.0-15.5); LYMPH # 2.5 10^3/uL (1.5-5.0); LYMPH % 37.3 % (24.0-44.0); MEAN CORPUSCULAR HEMOGLOBIN 28.9 pg (27.0-33.0); MEAN CORPUSCULAR HGB CONC 33.1 g/dl (32.0-36.5); MEAN CORPUSCULAR VOLUME 87.3 fl (80.0-96.0); MONO # 0.6 10^3/uL (0.0-0.8); MONO % 8.6 % (2.0-8.0); NEUTROPHILS # 3.2 10^3/uL (1.5-8.5); NEUTROPHILS % 47.7 % (36.0-66.0); PLATELET COUNT, AUTOMATED 264 10^3/uL (150-450); RED BLOOD COUNT 4.08 10^6/uL (4.00-5.40); WHITE BLOOD COUNT 6.6 10^3/uL (4.0-10.0)
[2023-11-17 12:35] LABS: FREE T4 0.83 NG/DL (0.89-1.76); THYROID STIMULATING HORMONE 3.575 uIU/ML (0.55-4.78)
[2023-11-17 12:37] LABS: ALBUMIN 3.8 G/DL (3.2-5.2); ALKALINE PHOSPHATASE 115 U/L (46-116); ALT/SGPT 12 U/L (7.0-40); AST/SGOT 12 U/L (<34); BILIRUBIN,TOTAL 0.3 MG/DL (0.3-1.2); BLOOD UREA NITROGEN 7 MG/DL (9-23); CALCIUM LEVEL 8.7 MG/DL (8.5-10.1); CARBON DIOXIDE LEVEL 27 MMOL/L (20-31); CHLORIDE LEVEL 110 MMOL/L (98-107); CHOLESTEROL LEVEL 162 MG/DL (<200); CHOLESTEROL RISK RATIO 2.96 (<5); CREATININE FOR GFR 0.89 MG/DL (0.55-1.30); GLOMERULAR FILTRATION RATE > 60.0 (>51); GLUCOSE, FASTING 95 MG/DL (60-100); HDL CHOLESTEROL 54.7 MG/DL (>40); LDL CHOLESTEROL 90.9 MG/DL (<100); NON-HDL-C 107.3 MG/DL; POTASSIUM SERUM 3.7 MMOL/L (3.5-5.1); SODIUM LEVEL 141 MMOL/L (136-145); TOTAL 25(OH) VITAMIN D 36.8 NG/ML (20.0-100.0); TOTAL PROTEIN 6.9 G/DL (5.7-8.2); TRIGLYCERIDES LEVEL 82 MG/DL (<150)
== END ==
LOC: M SFHCCLAY 08:45
PROVIDERS: ATTEND Nurse Practitioner Family
DX: Z00.00 Encounter for general adult medical examination without abnormal findings (principal); E55.9 Vitamin D deficiency, unspecified; F41.8 Other specified anxiety disorders; D64.9 Anemia, unspecified; Z13.220 Encounter for screening for lipoid disorders

== ENCOUNTER → 2024-11-18 | Outpatient (REF) | payer OTHER ==
[2024-11-18 12:41] LABS: BASO # 0.1 10^3/uL (0.0-0.2); BASO % 0.9 % (0.0-1.0); EOS # 0.6 10^3/uL (0.0-0.5); EOS % 7.4 % (0.0-3.0); HEMATOCRIT 37.8 % (36.0-47.0); HEMOGLOBIN 12.7 g/dl (12.0-15.5); LYMPH # 3.1 10^3/uL (1.5-5.0); LYMPH % 38.3 % (24.0-44.0); MEAN CORPUSCULAR HEMOGLOBIN 29.5 pg (27.0-33.0); MEAN CORPUSCULAR HGB CONC 33.6 g/dl (32.0-36.5); MEAN CORPUSCULAR VOLUME 87.7 fl (80.0-96.0); MONO # 0.6 10^3/uL (0.0-0.8); MONO % 7.8 % (2.0-8.0); NEUTROPHILS # 3.7 10^3/uL (1.5-8.5); NEUTROPHILS % 45.2 % (36.0-66.0); PLATELET COUNT, AUTOMATED 283 10^3/uL (150-450); RED BLOOD COUNT 4.31 10^6/uL (4.00-5.40); WHITE BLOOD COUNT 8.1 10^3/uL (4.0-10.0)
[2024-11-18 13:01] LABS: HEMOGLOBIN A1c 5.2 % (4.0-6.0)
[2024-11-18 13:13] LABS: ALBUMIN 3.8 G/DL (3.2-5.2); ALKALINE PHOSPHATASE 139 U/L (35-104); ALT/SGPT 16 U/L (7.0-40); AST/SGOT 13 U/L (<34); BILIRUBIN,TOTAL 0.3 MG/DL (0.3-1.2); BLOOD UREA NITROGEN 18 MG/DL (9-23); CALCIUM LEVEL 8.6 MG/DL (8.5-10.1); CARBON DIOXIDE LEVEL 25 MMOL/L (20-31); CHLORIDE LEVEL 108 MMOL/L (98-107); CREATININE FOR GFR 0.85 MG/DL (0.55-1.30); GLOMERULAR FILTRATION RATE > 60.0 (>51); GLUCOSE, FASTING 85 MG/DL (60-100); POTASSIUM SERUM 4.4 MMOL/L (3.5-5.1); SODIUM LEVEL 143 MMOL/L (136-145); TOTAL PROTEIN 7.3 G/DL (5.7-8.2)
[2024-11-18 13:17] LABS: THYROID STIMULATING HORMONE 3.796 uIU/ML (0.55-4.78); TOTAL 25(OH) VITAMIN D 27.3 NG/ML (20.0-100.0)
[2024-11-18 13:18] LABS: FREE T4 0.91 NG/DL (0.89-1.76)
== END ==
LOC: M SFHCCLAY 08:19
PROVIDERS: ATTEND Nurse Practitioner Family
DX: Z00.00 Encounter for general adult medical examination without abnormal findings (principal); E55.9 Vitamin D deficiency, unspecified; F41.8 Other specified anxiety disorders; D64.9 Anemia, unspecified; Z13.220 Encounter for screening for lipoid disorders